=== PATIENT | female | born 1990 | race Caucasian/White ===

== ENCOUNTER 2017-06-16 16:18 | Emergency (ER) | payer OTHER ==
[2017-06-16] MEDS: ONDANSETRON (ODT) 4 MG TAB ODT (17:28)
[2017-06-16] MEDS: MECLIZINE 12.5 MG TAB PO ×3 (17:28→23:13)
[2017-06-16 17:38] LABS: URINE BLOOD (Dip) POC Negative (NEGATIVE); URINE GLUCOSE (Dip) POC Negative (NEGATIVE); URINE KETONES (Dip) POC 1+ (NEGATIVE); URINE LEUKOCYTE EST (Dip) POC Trace (NEGATIVE); URINE NITRITE (Dip) POC Negative (NEGATIVE); URINE TOTAL PROTEIN POC Negative (NEGATIVE)
[2017-06-16] MEDS: ONDANSETRON 4 MG INJ IM (19:02)
[2017-06-16] MEDS: METOCLOPRAMIDE 10 MG INJ IM (19:02)
[2017-06-16] MEDS: SOD CHLORIDE 0.9% 1,000 ML IV ×2 (20:39→21:28)
[2017-06-16] MEDS: ONDANSETRON 4 MG INJ IV (20:39)
[2017-06-16 20:44] LABS: ADD MAN DIFF? NO
[2017-06-16 20:48] LABS: WHITE BLOOD COUNT 13.9 10^3/ul (4.8-10.8)
[2017-06-16 20:48] LABS: BASOPHILS % 0.2 % (0.0-2.0); HEMATOCRIT 37.4 % (37.0-47.0); HEMOGLOBIN 12.3 g/dl (12.0-16.0); LYMPHOCYTES # 1.4 10^3/ul (0.8-2.9); LYMPHOCYTES % 10.2 % (15.0-51.0); MEAN CORPUSCULAR HEMOGLOBIN 28.6 pg (29.0-33.0); MEAN CORPUSCULAR HGB CONC 32.9 g/dl (32.0-37.0); MEAN PLATELET VOLUME 12.2 fl (7.4-10.4); MONOCYTE # 0.4 10^3/ul (0.3-0.9); MONOCYTES % 2.8 % (0.0-11.0); NEUTROPHILS % 86.2 % (39.0-77.0); PLATELET COUNT 255 10^3/UL (140-415); RED CELL DISTRIBUTION WIDTH 14.6 % (11.5-14.5)
[2017-06-16 21:08] LABS: ALANINE AMINOTRANSFERASE 28 IU/L (13-69); ALBUMIN 4.4 g/dl (3.3-4.9); ALBUMIN/GLOBULIN RATIO 1.29; ALKALINE PHOSPHATASE 62 IU/L (42-121); ANION GAP 19 (8-16); ASPARTATE AMINO TRANSFERASE 29 IU/L (15-46); BILIRUBIN,INDIRECT 0.2 mg/dl (0-1.1); BILIRUBIN,TOTAL 0.2 mg/dl (0.2-1.3); BLOOD UREA NITROGEN 12 mg/dl (7-20); CALCIUM 8.8 mg/dl (8.4-10.2); CARBON DIOXIDE 23 mmol/L (21-31); CHLORIDE 104 mmol/L (97-110); CREATININE 0.74 mg/dl (0.44-1.00); GLUCOSE 134 mg/dl (70-220); LIPASE 41 U/L (23-300); POTASSIUM 4.2 mmol/L (3.5-5.1); SODIUM 142 mmol/L (135-144); TOTAL PROTEIN 7.8 g/dl (6.1-8.1)
[2017-06-16] MEDS: LORAZEPAM 2 MG INJ IV (21:28)
[2017-06-17] MEDS: SOD CHLORIDE 0.9% 1,000 ML IV ×2 (01:23→13:40)
[2017-06-17] MEDS: CEFTRIAXONE 1 GM/50 ML (PMX) 50 ML IVPB (01:23)
[2017-06-17] MEDS ORDERED: HYDROCODONE/APAP (5/325) TAB PO (01:30)
[2017-06-17] MEDS ORDERED: BISACODYL (EC) 5 MG TAB PO (01:30)
[2017-06-17] MEDS ORDERED: LORAZEPAM 2 MG INJ IV (01:30)
[2017-06-17] MEDS ORDERED: ONDANSETRON 4 MG INJ IV (01:30)
[2017-06-17] MEDS ORDERED: ZOLPIDEM 5 MG TAB PO (01:30)
[2017-06-17] MEDS ORDERED: DOCUSATE SODIUM 100 MG CAP PO (01:30)
[2017-06-17] MEDS ORDERED: METOCLOPRAMIDE 10 MG INJ IV (01:30)
[2017-06-17] MEDS ORDERED: morphine 2 MG INJ IV (01:30)
[2017-06-17] MEDS ORDERED: ACETAMINOPHEN 325 MG TAB PO (01:30)
[2017-06-17] MEDS ORDERED: MAGNESIUM HYDROXIDE 30ML CUP PO (01:30)
[2017-06-17] MEDS: METOCLOPRAMIDE 10 MG INJ IV ×2 (02:59→08:59)
[2017-06-17] MEDS: DIPHENHYDRAMINE 50 MG INJ IV (02:59)
[2017-06-17] MEDS: FAMOTIDINE 20 MG TAB PO (08:59)
[2017-06-17] MEDS: MECLIZINE 25 MG TAB PO ×2 (09:53→13:47)
[2017-06-17 10:08] LABS: ADD MAN DIFF? NO
[2017-06-17 10:10] LABS: WHITE BLOOD COUNT 8.7 10^3/ul (4.8-10.8)
[2017-06-17 10:10] LABS: BASOPHILS % 0.3 % (0.0-2.0); EOSINOPHILS % 0.3 % (0.0-7.0); HEMATOCRIT 32.5 % (37.0-47.0); HEMOGLOBIN 10.7 g/dl (12.0-16.0); LYMPHOCYTES % 22.8 % (15.0-51.0); MEAN CORPUSCULAR HEMOGLOBIN 28.6 pg (29.0-33.0); MEAN CORPUSCULAR HGB CONC 32.9 g/dl (32.0-37.0); MEAN CORPUSCULAR VOLUME 86.9 fl (82.0-101.0); MEAN PLATELET VOLUME 11.4 fl (7.4-10.4); MONOCYTE # 0.6 10^3/ul (0.3-0.9); MONOCYTES % 6.4 % (0.0-11.0); NEUTROPHIL # 6.1 10^3/ul (1.6-7.5); NEUTROPHILS % 69.6 % (39.0-77.0); PLATELET COUNT 246 10^3/UL (140-415); RED BLOOD COUNT 3.74 10^6/ul (4.20-5.40); RED CELL DISTRIBUTION WIDTH 14.8 % (11.5-14.5)
[2017-06-17 11:16] LABS: AMPHETAMINE/METHAMPHETAMINE Negative (NEGATIVE); BARBITURATES Negative (NEGATIVE); BENZODIAZEPINES Negative (NEGATIVE); CANNABINOIDS Negative (NEGATIVE); COCAINE Negative (NEGATIVE); OPIATES Negative (NEGATIVE)
[2017-06-17] MEDS: SOD CHLORIDE 0.9% 100 ML (15:11)
[2017-06-17] MEDS: IOHEXOL 100 ML (15:11)
== END 2017-06-17 19:10 | disposition home or self-care (01) ==
LOC: FTE 16:18 → MS2 06-17 01:14
PROVIDERS: Hospitalist
DX: R42 Dizziness and giddiness (principal); R11.2 Nausea with vomiting, unspecified; N39.0 Urinary tract infection, site not specified; E86.0 Dehydration; F41.9 Anxiety disorder, unspecified; R51 Headache; Z83.3 Family history of diabetes mellitus
CPT/HCPCS: 36415; 70450; 70496; 80053; 80307; 81003; 81025; 83690; 85025; 87086; 96365; 96366; 96372; 96375; 99285-25